=== PATIENT | male | born 1995 | race African-American/Black ===

== ENCOUNTER 2024-09-26 15:30 | Emergency (ER) | payer SELFPAY ==
[~2024-09-26] VITALS: Ht 170.2 cm; Wt 70.0 kg
[2024-09-26 15:35] VITALS: BP 131/91; PULSE 100; RESP 18; TEMP 98.6; O2SAT 97
== END 2024-09-26 20:14 | disposition left against medical advice (07) ==
LOC: ER 15:30
DX: F10.129 Alcohol abuse with intoxication, unspecified (principal); Z53.21 Procedure and treatment not carried out due to patient leaving prior to being seen by health care provider